=== PATIENT | male | born 1950 | race Hispanic/Latino ===

== ENCOUNTER 2016-12-14 07:02 | Inpatient (IN) | payer MEDICARE, MEDICAID ==
[2016-12-02 10:02] VITALS: BMI 28.3
[2016-12-14] MEDS ORDERED: Iohexol 240 (50 ml) ONE (08:53)
[2016-12-14] MEDS ORDERED: cefTRIAXone IV 1 gm in Dextros 50 ML IVPB ONE (08:53)
[2016-12-14] MEDS ORDERED: Lidocaine 2% Jelly (Uro-Jet) ONE (08:54)
[2016-12-14] MEDS ORDERED: Lactated Ringer's 1,000 ML IV ONE ×2 (09:17→14:30)
[2016-12-14] MEDS ORDERED: Propofol 10 mg/ml Inj (20 ML) ONE (09:21)
[2016-12-14] MEDS ORDERED: ePHEDrine 50 mg/ml Inj ONE (09:52)
--- NOTE | 2016-12-14 10:44 | PCM.SURG1 ---
Surgeon's Initial Post Op Note - Surgeon's Notes Surgeon: Aramis LEDBETTER Floating Operator: NONE Type of Anesthesia: General LMA Pre-Operative Diagnosis: BLADDER TUMOR Operative Findings: SAME Post-Operative Diagnosis: SAME Operation Performed: CYSTO, ATTEMPTED RTG PYELOGRAM. TURBT'S. TUR-BN Specimen/Specimens Removed: BLADDER TUMOR. BN Estimated Blood Loss: EBL {In ML}: 60 Blood Products Given: N/A Post-Op Condition: Good Date of Surgery/Procedure: 12/14/16 Time of Surgery/Procedure: 10:30
[2016-12-14] MEDS: HYDROmorphone 0.5 mg/0.5 ml ISec IVP PRN ×2 (10:52→11:09)
[2016-12-14] MEDS ORDERED: HYDROmorphone 1 mg/ml ISec ONE ×3 (10:52→12:11)
[2016-12-14] MEDS ORDERED: HYDROmorphone 0.5 mg/0.5 ml ISec IVP ONE (12:11)
[2016-12-14] MEDS ORDERED: DiphenhydrAMINE 50 mg/ml Inj IVP PRN (13:39)
[2016-12-14] MEDS ORDERED: Albuterol HFA 90 mcg/actuation (8 g) IH PRN (17:30)
[2016-12-14 17:42] VITALS: RESP 20
[2016-12-15 07:48] VITALS: PULSE 64; TEMP 98.4; O2SAT 96
[2016-12-15 08:34] LABS: HEMATOCRIT 39.3 % (35.0-51.0); MEAN CELL VOLUME 87.6 fL (80.0-94.0); MEAN CORPUSCULAR HEMOGLOBIN 29.2 pg (27.0-31.0); MEAN CORPUSCULAR HGB CONC 33.3 g/dL (33.0-37.0); RED CELL DISTRIBUTION WIDTH 14.6 % (11.5-14.5)
[2016-12-15 08:36] LABS: CHLORIDE 97 mmol/L (98-107); POTASSIUM 3.5 mmol/L (3.6-5.2); SODIUM 135 mmol/L (132-148)
[2016-12-15 08:38] LABS: GFR AFRICAN-AMERICAN > 60
[2016-12-15 08:39] LABS: BLOOD UREA NITROGEN 15 mg/dL (9-20); CALCIUM 8.9 mg/dl (8.6-10.4); CARBON DIOXIDE 25 mmol/L (22-30); GLUCOSE,RANDOM 96 mg/dL (75-110)
[2016-12-15] MEDS ORDERED: Multiple Vitamins Tab PO SCH (10:00)
[2016-12-15 10:49] VITALS: BP 117/78
--- NOTE | 2016-12-15 11:20 | RAD ---
HISTORY: BLADDER TUMOR COMPARISON: No prior. FINDINGS: BOWEL: Normal. No obstruction. No free air. BONES: L5-S1 facet osteoarthrosis L5 overall increased sclerosis. Mild increased sclerosis of both inferior SI joints right greater than left. Right sacral sided more diffuse sclerosis as well OTHER FINDINGS: Surgical clips project over the right iliac bone. Sutures also project over the right abdomen perhaps relating to bowel surgery -correlate clinically IMPRESSION: History of bladder surgery with clips noted. No gross bladder calculi. Additional right abdominal surgery suggested possibly bowel related Osseous findings above
--- NOTE | 2016-12-15 12:02 | PCM.URO ---
Urology Progress Note - General General: No Complaints, Tolerating Diet - Subjective Abdominal Pain: No Flank Pain: No Nausea: No Hematuria: Yes (MILD VIA JARQUIN) Dsypnea: No Chest Pain: No Fever & Chills: No - Objective Lab Studies: Reviewed Lab Results Last 24 Hours: Laboratory Results - last 24 hr 12/15/16 12/15/16 07:54 07:54 WBC 14.0 H D RBC 4.48 Hgb 13.1 Hct 39.3 MCV 87.6 MCH 29.2 MCHC 33.3 RDW 14.6 H Plt Count 238 MPV 8.0 Sodium 135 Potassium 3.5 L Chloride 97 L Carbon Dioxide 25 Anion Gap 17 BUN 15 Creatinine 1.3 Est GFR ( Amer) > 60 Est GFR (Non-Af Amer) 55 Random Glucose 96 Calcium 8.9 Intake & Output: Intake & Output 12/14/16 12/15/16 12/15/16 18:59 06:59 18:59 Intake Total 50 570 Output Total 1000 1250 Balance -950 -680 Intake: IV 50 Oral 570 Output: Urine 1000 1250 2-way Urethral 1250 Other: Voiding Method Indwelling Catheter # Bowel Movements 0 Vital Signs: Vital Signs - 24 hr 12/14/16 12/14/16 12/14/16 12:04 12:19 12:36 Temperature Pulse Rate 68 73 65 Respiratory 12 8 L 12 Rate Blood Pressure 142/85 133/82 133/88 O2 Sat by Pulse 98 98 98 Oximetry 12/14/16 12/14/16 12/14/16 12:49 13:04 13:19 Temperature Pulse Rate 69 64 64 Respiratory 12 10 L 8 L Rate Blood Pressure 105/60 101/53 L 128/78 O2 Sat by Pulse 98 98 98 Oximetry 12/14/16 12/14/16 12/14/16 13:49 14:04 14:19 Temperature Pulse Rate 61 61 68 Respiratory 10 L 11 L 11 L Rate Blood Pressure 125/81 120/81 133/84 O2 Sat by Pulse 98 98 98 Oximetry 12/14/16 12/14/16 12/14/16 14:34 14:50 15:19 Temperature Pulse Rate 63 63 69 Respiratory 11 L 12 14 Rate Blood Pressure 131/83 101/53 L 107/76 O2 Sat by Pulse 98 98 98 Oximetry 12/14/16 12/14/16 12/14/16 15:49 16:04 16:40 Temperature 98.7 F 98.4 F Pulse Rate 66 64 63 Respiratory 12 13 20 Rate Blood Pressure 122/81 112/79 121/70 O2 Sat by Pulse 98 98 97 Oximetry 12/14/16 12/14/16 12/14/16 18:03 19:55 23:15 Temperature 98.2 F Pulse Rate 68 61 Respiratory 20 Rate Blood Pressure 121/70 109/64 O2 Sat by Pulse 98 Oximetry 12/15/16 12/15/16 07:47 10:47 Temperature 98.4 F Pulse Rate 64 Respiratory 20 Rate Blood Pressure 101/64 117/78 O2 Sat by Pulse 96 Oximetry - Physical Exam Abdominal Exam: Soft, Non-Tender, Non-Distended Bowel Sounds: Normal Dressing: Intact Back: No CVA Tenderness Genitalia: Without Inflammation Urine Color: [place] - Male Phallus: Normal Scrotum: Normal Testes: Normal: Bilateral - Plan Catheter Care: Yes Intake & Output: Yes See Orders: Yes Additional Information: IMP: STABLE POST TUR-BT. PLAN/REC: JARQUIN CATH IN PLACE. PATH PENDING. OUTPY F/U - Date & Time of Note Date: 12/15/16 Time: 12:02
--- NOTE | 2016-12-16 08:46 | OP ---
PROCEDURE DATE: 12/14/2016 PREOPERATIVE DIAGNOSIS: Bladder tumor. POSTOPERATIVE DIAGNOSIS: Bladder tumor. PROCEDURES: Cystoscopy. Attempted retrograde pyelogram. Transurethral resection of bladder tumor. Transurethral resection of bladder neck. OPERATING SURGEON: Dr. Deb Franco. DESCRIPTION OF PROCEDURE: The patient was placed in lithotomy position. General anesthesia was admi nistered via LMA. Perioperative antibiotics were administered. The genitalia were prepped and draped sterilely with the patient in lithotomy position. A 22-Scottish cystoscope sheath was introduced under direct vision. Urethra, prostate and bladder were inspected. FINDINGS: There was no stricture of the anterior urethra. There was evidence of trilobar prostatic hypertrophy. The prostatic urethra was 3.5 cm in length and occlusive. There was noted to be moderate bladder trabeculation. There were multiple tumors within the bladder. On the posterior wall, there were 2 rounded papillary bladder tumors which appeared well differenti ated. On the floor of the bladder on right side of the trigone and extending toward the bladder neck there was a large tumor, approximately 4 cm in size. The tumor appeared to be papillary in areas as well a s more solid in other areas. The tumor had some areas of inflammation as well as areas of some white flaky debris on its surface. The small tumors on the posterior wall were each approximately 1 cm and 0.5 cm respectively. The cystoscope and sheath were removed. A 26-Scottish continuous flow resectoscope sheath was introduced under direct vision. The resectoscope was then inserted. The tumor was resected on the floor. The ureteral orifices were attempted to be identified during th e cystoscopy. However, retrograde pyelogram could not be performed as the orifice could not be ident ified. The resection was begun with the 26-Scottish continuous flow resectoscope sheath. The tumor involving the right trigone extending to the bladder neck was fully resected. The specimen was sent for pathol ogic examination. The base of the tumor was resected as well. In continuity with this tumor, there was extension toward the bladder neck. The bladder neck thus re quired resection, both to resect the tumor fully as well as to resect the bladder neck to gain access to the tumor as it extended in a lateral and anterior direction. The bladder neck was resected as w ell further to allow complete access to the tumor as well as for possible tumor removal, which may donohue ve involved the bladder neck. The specimens were sent individually for pathologic examination. The remaining tumors on the posterior wall were resected with the resectoscope and sent for pathologi c examination. Hemostasis was achieved using electrocautery and a loop electrode as well as with a ____ ball electro de. The resectoscope and sheath removed. Patel catheter was inserted. Bladder drainage was light pink a nd cleared with irrigation. Exam under anesthesia was performed. There was no abnormal pelvic mass, fixation or induration. The prostate was noted to be supple and smooth without nodularity. There was no pelvic mass identified. The patient tolerated the procedure without complication. Deb Franco MD cc: [id number] TT: 12/16/2016 08:45:54 sc
[2016-12-17] MEDS ORDERED: Pneumococcal 23-Valent Vaccine IM ONE (10:00)
== END 2016-12-15 14:15 | disposition home or self-care (01) | DRG 670 ==
LOC: C.SDS 07:02 → C.6T 11:29
PROVIDERS: ADMIT Urology; ATTEND Urology
PROC: 0TBC8ZZ Excision of Bladder Neck, Via Natural or Artificial Opening Endoscopic (ICD-10-PCS; 2016-12-14)
PROC: 0TBB8ZZ Excision of Bladder, Via Natural or Artificial Opening Endoscopic (ICD-10-PCS; principal; 2016-12-14 08:45)
DX: C67.8 Malignant neoplasm of overlapping sites of bladder (principal); N32.89 Other specified disorders of bladder; N40.1 Benign prostatic hyperplasia with lower urinary tract symptoms; R31.9 Hematuria, unspecified

== ENCOUNTER 2017-03-29 07:45 | Day surgery (SDC) | payer MEDICARE, MEDICAID ==
[2017-03-09 10:21] VITALS: BMI 29.7
[2017-03-29] MEDS ORDERED: Etomidate 20 mg/10ml Inj IV ONE (08:57)
[2017-03-29] MEDS ORDERED: Iohexol 240 (50 ml) ONE (09:00)
[2017-03-29] MEDS ORDERED: Lactated Ringer's 1,000 ML IV ONE (09:00)
[2017-03-29] MEDS ORDERED: Midazolam 2 MG/2 ML VIAL ONE (09:01)
[2017-03-29] MEDS: cefTRIAXone IV 1 gm in Dextros 50 ML IVPB ONE ×2 (09:04→09:10)
[2017-03-29] MEDS ORDERED: HYDROmorphone 0.5 mg/0.5 ml ISec IVP PRN (09:30)
--- NOTE | 2017-03-29 09:53 | PCM.SURG1 ---
Surgeon's Initial Post Op Note - Surgeon's Notes Surgeon: georgia moore Composite Laminator: none Pre-Operative Diagnosis: hx of bladder ca Operative Findings: recurrent tumor Post-Operative Diagnosis: same, bph Operation Performed: cysto, attmpted rtg pyelogram. bladder bx and fulg Specimen/Specimens Removed: urine. bladder bx Estimated Blood Loss: EBL {In ML}: 0 Blood Products Given: N/A Drains Used: No Drains Post-Op Condition: Good Date of Surgery/Procedure: 03/29/17 Time of Surgery/Procedure: 09:30
[2017-03-29 10:54] VITALS: TEMP 97.6; O2SAT 99
[2017-03-29 11:08] VITALS: BP 128/77; PULSE 54; RESP 20
--- NOTE | 2017-03-29 17:28 | RAD ---
HISTORY: HX. OF BT COMPARISON: Comparison made with prior abdominal radiographs dated 12/14/2016. FINDINGS: BOWEL: Moderate amount of stool seen throughout the colon consistent with mild fecal retention/ constipation. BONES: Mild degenerative spondylosis most notably affecting lower lumbosacral spine. Mild sclerosis both SI joints. OTHER FINDINGS: Re- demonstrated are metallic clips overlying the right sacrum unchanged from prior exam. There are radiopaque chain sutures seen overlying the right parasagittal lower abdomen and upper pelvis region. Tiny calcific density overlying the true pelvis likely in part represent calcified pelvic phleboliths. IMPRESSION: Metallic surgical clips right parasagittal pelvis with chain sutures at in the right lower abdomen and upper pelvis region. Clinic correlation recommended. Findings suggest mild constipation.
--- NOTE | 2017-03-30 22:21 | OP ---
DATE OF PROCEDURE: 03/29/2017 PREOPERATIVE DIAGNOSIS: History of bladder tumor. POSTOPERATIVE DIAGNOSIS: History of bladder tumor. PROCEDURES: Cystoscopy. Bladder biopsy and fulguration. Attempted retrograde pyelogram. Exam under anesthesia. OPERATING SURGEON: Dr. Deb Franco. DESCRIPTION OF PROCEDURE: The patient was placed in lithotomy position. Scan from the abdomen was obtained. Genitalia were prepped and draped sterilely. Anesthesia was applied by the anesthesiologist. Perioperative antibiotics were administered. A 22-Emirati cystoscope sheath was introduced under direct vision. Urethra, prostate, and bladder were inspected with 30-degree and 70-degree lenses. FINDINGS: There was noted to be no stricture in the anterior urethra. There was evidence of prostatic hypertrophy which was mildly occlusive. There was no bladder stone. There was a papillary bladder tumor approximately 1 cm in size involving the right floor of the bladder. The ureteral orifices could not be identified. There were no other bladder tumors. There was area of scarring noted on the floor of the bladder at the site of the previous resection. The bladder tumor was biopsied and fully removed using the rigid cold-cup biopsy forceps. Fulguration was performed with Ball electrode and electrocautery. Hemostasis was complete. The bladder was then inspected with 70-degree lens and confirmed the above findings. Further attempt at identifying the ureteral orifices was performed and retrograde pyelogram was made; however, the orifices could not be identified. The bladder was then drained. Cystoscope and sheath were removed. Rectal examination was performed. Prostate was supple and smooth, approximately 25 g in size, without fixation, induration, or nodularity. There was no abnormal pelvic mass, fixation, or induration. The patient tolerated the procedure without complication. Deb Franco MD
== END 2017-03-29 11:05 | disposition home or self-care (01) ==
LOC: C.SDS 07:45
PROVIDERS: ATTEND Urology
DX: C67.9 Malignant neoplasm of bladder, unspecified (principal); N40.0 Benign prostatic hyperplasia without lower urinary tract symptoms
CPT/HCPCS: 52234; 74000; 87086; 88104; 88305; C1758; J0696; J7120; Q9966